=== PATIENT | female | born 1990 | race Caucasian/White ===

== ENCOUNTER 2018-12-12 19:52 | Emergency (ER) | payer SELFPAY ==
[~2018-12-12] VITALS: Ht 152.4 cm; Wt 79.7 kg
[2018-12-12 20:13] VITALS: BP 124/83; PULSE 78; RESP 18; Ht 152.4 cm; Wt 79.7 kg
== END 2018-12-12 22:36 | disposition left against medical advice (07) ==
LOC: FTE 19:52
DX: Z53.21 Procedure and treatment not carried out due to patient leaving prior to being seen by health care provider (principal)